=== PATIENT | female | born 1985 | race Caucasian/White ===

== ENCOUNTER 2017-11-09 06:51 | Emergency (ER) | payer OTHER ==
[2017-11-09] MEDS ORDERED: Sodium Chloride 0.9% 5 ML Syringe FLUSH PRN (07:06)
[2017-11-09] MEDS ORDERED: diphenhydrAMINE 50 MG/ML SDV IVPUSH ONE (07:27)
[2017-11-09] MEDS ORDERED: Ondansetron 4 MG/2 ML SDV IVPUSH ONE (07:27)
[2017-11-09] MEDS ORDERED: Ketorolac 30 MG/ML SDV IVPUSH ONE (07:27)
--- NOTE | 2017-11-09 07:32 | EDM.PDOC ---
ED HPI GENERAL MEDICAL PROBLEM - General Chief Complaint: Headache Stated Complaint: migraine Time Seen by Provider: 11/09/17 07:24 Source of Information: Reports: Patient History Limitations: Reports: No Limitations - History of Present Illness INITIAL COMMENTS - FREE TEXT/NARRATIVE: 32 YO WF presents to ER complaining of left sided headache x 2 days. Pt reports she gets migraine headaches approximately 4-6 x/year requiring a"shot" in the clinic. Pt reports taking her home migraine medication without relief. Pt reports associated nausea/vomiting. Pt denies any weakness/numbness, no fever/ chills, no neck pain. Pt reports CT scan of brain in the recent past for similar headache which she states showed no abnormal findings. Onset Date: 11/08/17 Duration: Day(s): (2) Location: Reports: Head Quality: Reports: Ache Severity: Moderate Improves with: Reports: None Worsens with: Reports: None Associated Symptoms: Reports: No Other Symptoms, Headaches, Nausea/Vomiting - Related Data Allergies Allergy/AdvReac Type Severity Reaction Status Date / Time seasonal Allergy Itching Uncoded 11/09/17 06:55 Home Meds: Home Meds FLUoxetine HCl [Fluoxetine HCl] 40 mg PO DAILY 11/09/17 [History] Norethindrone-E.estradiol-Iron [Junel Fe 1 MG-20 MCG] 1 tab PO ASDIRECTED [History] Past Medical History Neurological History: Reports: Migraines Psychiatric History: Reports: Depression - Past Surgical History Neurological Surgical History: Reports: None Social & Family History - Family History Family Medical History: Noncontributory - Tobacco Use Smoking Status *Q: Never Smoker Second Hand Smoke Exposure: No - Caffeine Use Caffeine Use: Reports: None - Recreational Drug Use Recreational Drug Use: No ED ROS GENERAL - Review of Systems Review Of Systems: See Below Constitutional: Reports: No Symptoms HEENT: Reports: No Symptoms Respiratory: Reports: No Symptoms Cardiovascular: Reports: No Symptoms Endocrine: Reports: No Symptoms GI/Abdominal: Reports: No Symptoms : Reports: No Symptoms Musculoskeletal: Reports: No Symptoms Skin: Reports: No Symptoms Neurological: Reports: Headache. Denies: Confusion, Dizziness, Numbness, Paresthesia, Tingling, Trouble Speaking, Difficulty Walking, Change in Speech Psychiatric: Reports: No Symptoms Hematologic/Lymphatic: Reports: No Symptoms Immunologic: Reports: No Symptoms ED EXAM, GENERAL - Physical Exam Exam: See Below Exam Limited By: No Limitations General Appearance: Alert, WD/WN, Mild Distress Eye Exam: Bilateral Eye: EOMI, PERRL Nose: Normal Inspection, Normal Mucosa, No Blood Throat/Mouth: Normal Inspection, Normal Lips, Normal Teeth, Normal Gums, Normal Oropharynx, Normal Voice, No Airway Compromise Head: Atraumatic, Normocephalic Neck: Normal Inspection, Supple, Non-Tender, Full Range of Motion Respiratory/Chest: No Respiratory Distress, Lungs Clear, Normal Breath Sounds, No Accessory Muscle Use, Chest Non-Tender Cardiovascular: Normal Peripheral Pulses, Regular Rate, Rhythm, No Edema, No Gallop, No JVD, No Murmur, No Rub GI/Abdominal: Normal Bowel Sounds, Soft, Non-Tender, No Organomegaly, No Distention, No Abnormal Bruit, No Mass Back Exam: Normal Inspection Extremities: Normal Inspection, Normal Range of Motion, Non-Tender, Normal Capillary Refill, No Pedal Edema Neurological: Alert, Oriented, CN II-XII Intact, Normal Cognition, Normal Gait, Normal Reflexes, No Motor/Sensory Deficits Psychiatric: Normal Affect, Normal Mood Skin Exam: Warm, Dry, Intact, Normal Color, No Rash Lymphatic: No Adenopathy Course - Vital Signs Last Recorded V/S: Last Vital Signs Temp 35.9 C 11/09/17 06:52 Pulse 71 11/09/17 06:52 Resp 18 11/09/17 06:52 BP 125/70 11/09/17 06:52 Pulse Ox 98 11/09/17 06:52 - Orders/Labs/Meds Orders: Active Orders 24 hr Category Date Time Status Sodium Chloride 0.9% [Syrex Flush] Med 11/09/17 07:06 Active 5 ml FLUSH Q8HR PRN Saline Lock Insert [OM.PC] Routine Oth 11/09/17 07:06 Ordered Medication Orders Sodium Chloride (Syrex Flush) 5 ml FLUSH Q8HR PRN PRN Reason: Keep Vein Open Meds: Medications Generic Name Dose Route Start Last Admin Trade Name Freq PRN Reason Stop Dose Admin Sodium Chloride 5 ml 11/09/17 07:06 Syrex Flush FLUSH Q8HR PRN Keep Vein Open Departure - Departure Time of Disposition: 07:35 Disposition: Home, Self-Care 01 Condition: Good Clinical Impression: Migraine - Discharge Information Instructions: Recurrent Migraine Headache, [id number] Referrals: Arpita Jacinto PA-C [Primary Care Provider] - - My Orders Last 24 Hours: My Active Orders 11/09/17 07:06 Sodium Chloride 0.9% [Syrex Flush] 5 ml FLUSH Q8HR PRN Saline Lock Insert [OM.PC] Routine - Assessment/Plan Last 24 Hours: My Active Orders 11/09/17 07:06 Sodium Chloride 0.9% [Syrex Flush] 5 ml FLUSH Q8HR PRN Saline Lock Insert [OM.PC] Routine Assessment:: 1. Migraine headache Plan: 1. plenty of fluids 2. benadryl/motrin for pain if it returns 3. follow up in clinic for recheck and further evaluation 4. return to ER for worsening symptoms 5. discharge home
== END 2017-11-09 07:58 | disposition home or self-care (01) ==
LOC: KA.ED 06:51
DX: G43.909 Migraine, unspecified, not intractable, without status migrainosus (principal)
CPT/HCPCS: 96374; 96375; 99283; J1200; J1885; J2405

== ENCOUNTER 2021-07-22 09:43 | Emergency (ER) | payer BC, OTHER ==
[2021-07-22] MEDS ORDERED: Sodium Chloride 0.9% 1,000 ML ONE (09:54)
--- NOTE | 2021-07-22 09:59 | EDM.PDOC ---
ED HPI GENERAL MEDICAL PROBLEM - General Chief Complaint: Headache Stated Complaint: MIGRAINE HEADACHE Time Seen by Provider: 07/22/21 09:59 Source of Information: Reports: Patient - History of Present Illness INITIAL COMMENTS - FREE TEXT/NARRATIVE: Syl, 36-year-old female, presents with her spouse to the emergency department with migraine headache. States this started yesterday and has persisted and worsened rating it today at 10 on a scale of 10. She has a migraine history and this is typical for her. She experiences nausea as well as extreme photophobia. She has never been on any immediate abortive type medications, such as the triptan family, nor has she ever had discussion on potential preventative medications that are newer to the market, such as Emgality. Her menses concluded yesterday. This is a different headache than she typically gets at the beginning of her menstrual cycle which is typically more frontal not encompassing the entire region. Her review of [place] [id number] chart link, shows distant visit for migraine visit for migraine anxiety depressive component. No pandemic concerns or complaints. Onset: Gradual Onset Date: 07/21/21 Duration: Day(s): Location: Reports: Head Quality: Reports: Burning, Sharp, Throbbing Severity: Severe Improves with: Reports: None Context: Reports: Activity Associated Symptoms: Reports: Malaise, Nausea/Vomiting Headache Pain Score (Numeric/FACES): 10 - Related Data Allergies Allergy/AdvReac Type Severity Reaction Status Date / Time seasonal Allergy Mild Itching Uncoded 07/22/21 09:59 Home Meds: Home Meds FLUoxetine HCl [Fluoxetine HCl] 40 mg PO DAILY 11/09/17 [History] norethindrone-e.estradioL-iron [Junel Fe 1 MG-20 MCG] 1 tab PO ASDIRECTED 11/09/17 [History] Past Medical History Neurological History: Reports: Migraines Psychiatric History: Reports: Depression - Past Surgical History Neurological Surgical History: Reports: None Social & Family History - Family History Family Medical History: No Pertinent Family History - Tobacco Use Tobacco Use Status *Q: Never Tobacco User - Caffeine Use Caffeine Use: Reports: None ED ROS GENERAL - Review of Systems Review Of Systems: Comprehensive ROS is negative, except as noted in HPI. ED EXAM, GENERAL - Physical Exam Exam: See Below Free Text/Narrative:: Alert, oriented and appears to be painful distress with light sensitivity. HEENT is negative discharge or deformity. PERRLA with no icterus no injection. No funduscopy is performed as she is extremely light sensitive, even with covering and covering of eyes in a darkened room to test pupil reactivity. No tenderness is noted to the skull base of the neck nor rigidity of the cervical spine. No lymphadenopathy is noted. Thorax is clear no wheezes no crackles. Cardiac is regular I do not appreciate any murmur. Radial pulse correlates. Mild nausea is demonstrated and complained of and is may be exacerbated with palpation of the abdomen that is soft and nontender. There is no edema to the extremities she is able to move the extremities about upon command with pulses present. Course - Vital Signs Last Recorded V/S: Last Vital Signs Temp 96.4 F L 07/22/21 10:00 Pulse 98 07/22/21 10:00 Resp 18 07/22/21 10:00 BP 129/80 07/22/21 10:00 Pulse Ox 98 07/22/21 10:00 - Orders/Labs/Meds Meds: Medications Discontinued Medications Generic Name Dose Route Start Last Admin Trade Name [place] PRN Reason Stop Dose Admin Diphenhydramine HCl 25 mg 07/22/21 10:03 07/22/21 10:11 Diphenhydramine 50 Mg/Ml Sdv IVPUSH 07/22/21 10:04 25 mg ONETIME ONE Administration Sodium Chloride Confirm 07/22/21 09:54 07/22/21 10:21 Normal Saline Administered 07/22/21 09:55 Not Given Dose 1,000 mls @ as directed .ROUTE .STK-MED ONE Sodium Chloride 1,000 mls @ 999 mls/hr 07/22/21 10:08 07/22/21 10:11 Normal Saline IV 07/22/21 11:08 999 mls/hr .BOLUS ONE Administration Ketorolac Tromethamine 30 mg 07/22/21 10:02 07/22/21 10:11 Ketorolac 30 Mg/Ml Sdv IVPUSH 07/22/21 10:03 30 mg ONETIME ONE Administration Ondansetron HCl 8 mg 07/22/21 10:05 07/22/21 10:12 Ondansetron 4 Mg/2 Ml Sdv IVPUSH 07/22/21 10:06 8 mg ONETIME ONE Administration - Re-Assessments/Exams Free Text/Narrative Re-Assessment/Exam: 07/22/21 10:41 Nausea is completely resolved, headache is improving but still present. She is somewhat more comfortable at this time with roughly half of the IV fluid infused. 07/22/21 10:46 Rates her pain a 2 at this time on the same scale of 10. 07/22/21 10:58 Headache at this time is "almost gone" not giving it a number. Departure - Departure Time of Disposition: 11:03 Disposition: Home, Self-Care 01 Condition: Good Clinical Impression: Migraine - Discharge Information *PRESCRIPTION DRUG MONITORING PROGRAM REVIEWED*: Not Applicable *COPY OF PRESCRIPTION DRUG MONITORING REPORT IN PATIENT ELIN: Not Applicable Instructions: Migraine Headache, [id number] Referrals: Arpita Jacinto PA-C [Primary Care Provider] - Forms: ED Department Discharge Additional Instructions: You will need to go home and rest for the remainder of the day. This should be in a quiet dark and cool environment. No bright light or electronic display, avoiding signs and other light emitting sources. You should make an appointment with your clinic to discuss migraine therapy for possible prevention as well as some of the immediate reactive medications such as the triptan family for stopping a headache at its onset. If this was not beneficial consideration for a full headache work-up may be given. Continue your other medications as directed. Make sure that you are maintaining a well hydrated lifestyle avoiding any risk of dehydration. Contact your clinic for appointment, return to the emergency department as need ed. Sepsis Event Note (ED) - Focused Exam Vital Signs: Vital Signs Temp Pulse Resp BP Pulse Ox 07/22/21 10:00 96.4 F L 98 18 129/80 98 07/22/21 09:45 96.4 F L 64 18 129/80 98 - Problem List & Annotations (1) Nausea SNOMED Code(s): 657540844 Code(s): R11.0 - NAUSEA Status: Resolved Priority: High Current Visit: Yes (2) Migraine SNOMED Code(s): 53543585 Code(s): G43.909 - MIGRAINE, UNSP, NOT INTRACTABLE, WITHOUT STATUS MIGRAINOSUS Status: Resolved Priority: High Current Visit: Yes - Problem List Review Problem List Initiated/Reviewed/Updated: Yes - Assessment/Plan Plan: You will need to go home and rest for the remainder of the day. This should be in a quiet dark and cool environment. No bright light or electronic display, avoiding signs and other light emitting sources. You should make an appointment with your clinic to discuss migraine therapy for possible prevention as well as some of the immediate reactive medications such as the triptan family for stopping a headache at its onset. If this was not beneficial consideration for a full headache work-up may be given. Continue your other medications as directed. Make sure that you are maintaining a well hydrated lifestyle avoiding any risk of dehydration. Contact your clinic for appointment, return to the emergency department as needed.
[2021-07-22] MEDS ORDERED: Ketorolac 30 MG/ML SDV IVPUSH ONE (10:02)
[2021-07-22] MEDS ORDERED: diphenhydrAMINE 50 MG/ML SDV IVPUSH ONE (10:03)
[2021-07-22] MEDS ORDERED: Ondansetron 4 MG/2 ML SDV IVPUSH ONE (10:05)
[2021-07-22] MEDS ORDERED: Sodium Chloride 0.9% 1,000 ML IV ONE (10:08)
== END 2021-07-22 11:10 | disposition home or self-care (01) ==
LOC: KA.ED 09:43
DX: G43.909 Migraine, unspecified, not intractable, without status migrainosus (principal); Z91.09 Other allergy status, other than to drugs and biological substances
CPT/HCPCS: 96374; 96375; 99283; 99283-25; J1200; J1885; J2405; J7030

== ENCOUNTER 2022-05-28 19:46 | Emergency (ER) | payer BC ==
[2022-05-28] MEDS ORDERED: Ondansetron 4 MG/2 ML SDV ONE (19:58)
[2022-05-28] MEDS ORDERED: Sodium Chloride 0.9% 1,000 ML ONE (19:58)
[2022-05-28] MEDS ORDERED: Ondansetron 4 MG/2 ML SDV IVPUSH ONE (20:05)
[2022-05-28] MEDS ORDERED: Sodium Chloride 0.9% 1,000 ML IV ONE (20:15)
[2022-05-28] MEDS ORDERED: Sodium Chloride 0.9% 10 ML Syringe FLUSH PRN (20:19)
[2022-05-28] MEDS ORDERED: Ondansetron 4 MG Tab.DIS PO ONE (21:18)
== END 2022-05-28 21:35 | disposition home or self-care (01) ==
LOC: KA.ED 19:46
DX: K52.9 Noninfective gastroenteritis and colitis, unspecified (principal); Z91.09 Other allergy status, other than to drugs and biological substances
CPT/HCPCS: 36415; 80053; 83690; 84703; 85025; 96361; 96374; 99284-25; A9270-GY; J2405; J7030

== ENCOUNTER 2022-10-06 17:05 | Emergency (ER) | payer BC ==
[2022-10-06] MEDS ORDERED: Sodium Chloride 0.9% 10 ML Syringe FLUSH PRN (17:10)
[2022-10-06] MEDS ORDERED: Ketorolac 30 MG/ML SDV IVPUSH ONE (17:10)
[2022-10-06] MEDS ORDERED: Metoclopramide 10 MG/2 ML SDV IVPUSH ONE (17:10)
[2022-10-06] MEDS ORDERED: Sodium Chloride 0.9% 1,000 ML IV ONE (17:10)
[2022-10-06] MEDS ORDERED: diphenhydrAMINE 50 MG/ML SDV IVPUSH ONE (17:10)
== END 2022-10-06 18:45 | disposition home or self-care (01) ==
LOC: KA.ED 17:05
DX: G43.009 Migraine without aura, not intractable, without status migrainosus (principal); Z91.048 Other nonmedicinal substance allergy status
CPT/HCPCS: 96361; 96374; 96375; 99283; J1200; J1885; J2765; J3490; J7030

== ENCOUNTER 2024-02-08 17:36 | Emergency (ER) | payer BC ==
[2024-02-08] MEDS: Ondansetron 4 MG/2 ML SDV IVPUSH ONE (18:38)
[2024-02-08] MEDS: Sodium Chloride 0.9% 1,000 ML IV ONE (18:40)
[2024-02-08] MEDS: diphenhydrAMINE 50 MG/ML SDV IVPUSH ONE (18:40)
[2024-02-08] MEDS: Ketorolac 30 MG/ML SDV IVPUSH ONE (18:42)
== END 2024-02-08 19:28 | disposition home or self-care (01) ==
LOC: KA.ED 17:36
DX: G43.909 Migraine, unspecified, not intractable, without status migrainosus (principal); Z91.048 Other nonmedicinal substance allergy status; Z79.899 Other long term (current) drug therapy
CPT/HCPCS: 96374; 96375; 99283; J1200; J1885; J2405; J7030